=== PATIENT | female | born 1960 ===

== ENCOUNTER 2024-08-13 05:42 | Day surgery (SDC) | payer OTHER ==
[~2024-08-13 05:42] MED LIST: ABATINEX680 MG; ECOTRIN81 MG PO; NEURONTIN800 MG PO; PEPCID40 MG PO; PREVACID30 MG PO; VASOFLEX D1 CA1 EACH PO; VITAMIN D310 MC1; ZESTRIL20 MG PO
[2024-08-13] MEDS ORDERED: MACROBID 100 M100 MG PO (10:07)
[2024-08-13] MEDS ORDERED: TRAM1TAB98 PO (10:08)
== END 2024-08-13 13:00 | disposition home or self-care (01) ==
LOC: CIR.AMB 05:42
PROVIDERS: ATTEND Obstetrics & Gynecology Gynecology
DX: N81.11 Cystocele, midline (principal); N81.5 Vaginal enterocele; Z91.02 Food additives allergy status; I10 Essential (primary) hypertension